=== PATIENT | female | born 1950 | race Caucasian/White ===

== ENCOUNTER → 2020-02-18 | Outpatient (CLI) | payer OTHER ==
[~2020-02-18] MED LIST: ADVAIR HFA 230M12 GM INH; ASPIR 8181 MG PO; BENICAR40 MG PO; COMBIVENT RESPIM4 GM IH; HYDROCHLOROTHIA25 M2 PO; NORCO 10-325 T1 EACH PO; SPIRIVA INH; XANAX1 MG PO
== END ==
LOC: SJCVC 14:14
PROVIDERS: ATTEND Internal Medicine
DX: R94.31 Abnormal electrocardiogram [ECG] [EKG] (principal); R00.0 Tachycardia, unspecified; I10 Essential (primary) hypertension; I25.110 Atherosclerotic heart disease of native coronary artery with unstable angina pectoris; R06.02 Shortness of breath; J44.9 Chronic obstructive pulmonary disease, unspecified; Z79.899 Other long term (current) drug therapy; Z87.891 Personal history of nicotine dependence